=== PATIENT | female | born 1995 | race Caucasian/White ===

== ENCOUNTER 2023-07-14 08:42 | Outpatient (AMB) | payer BC, SELFPAY ==
--- NOTE | 2023-07-14 08:49 | A.OFFPC_ITS ---
Vital Signs 07/14/23 08:54 Height 5 ft 4.29 in Weight 165 lb 4 oz BMI 28.1 BP 112/78 Blood Pressure Location Lt brachial Position Sitting Respiration 12 Pulse 99 Pulse Source Pulse Oximeter Temp 98.2 F Temp Source Oral Pulse Oximetry (%) 98 Oxygen Delivery Method Room Air Intake Visit Reasons: est care Intake Note: New patient visit Allergies Penicillins Allergy (Severe, Verified 07/14/23 08:51) Rash prednisone Allergy (Severe, Verified 07/14/23 08:51) throat closing Sulfa (Sulfonamide Antibiotics) Allergy (Severe, Verified 07/14/23 08:51) Rash zpack Allergy (Severe, Uncoded 07/14/23 08:51) Rash Medication List - Last Reconciled 07/14/23 by Juju Barriga MD dextroamphetamine-amphetamine 30 mg 1 tab PO BID erenumab-aooe (Aimovig Autoinjector) mg subcut L norgest/e.estradiol-e.estrad 0.15 mg-30 mcg (84)/10 mcg (7) (Simpesse) 1 tab PO DAILY PNV,calcium 08-caav-kmact acid 27 mg iron- 1 mg (M-Inocencia Plus) 1 tab PO DAILY ubrogepant (Ubrelvy) mg PO Tobacco use date assessed: 07/14/23 Dental Screening Dental Screen Date: 07/14/23 Did you have a dental visit in the last 12 months?: No Did you have a dental problem in the last 6 months where you did not have access to dental care?: No Was dental information given to patient?: Patient has dentist HPI HPI Comments History of Present Illness Details This is a 28 year old female with a past medical history of endometriosis, migraines presenting to reestablish care. Endometriosis:On adderral, combined OCP, vistamin Migraines: On aimovig, ubrelvy [facility] Medical History (Updated 07/14/23 @ 11:03 by Juju Barriga MD) Acne Deviated septum Surgical History (Updated 07/14/23 @ 10:23 by Brittney Paez CMA) H/O section H/O laparoscopy H/O arthroscopic knee surgery Family History (Updated 07/14/23 @ 10:24 by Brittney Paez CMA) Mother HTN (hypertension) Father HTN (hypertension) Maternal Grandmother Breast cancer Social History Housing: House Patient Tobacco Use Status: Never used Tobacco e-Cigarette/Vaping Use: Never Used Second Hand Smoke Exposure: No service: No Current occupational status: employed 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 1. Little interest or pleasure in doing things: not at all 2. Feeling down, depressed, or hopeless: not at all 3. Trouble falling or staying asleep, or sleeping too much: nearly every day 4. Feeling tired or having little energy: several days 5. Poor appetite or overeating: not at all 6. Feeling bad about yourself - or that you are a failure or have let yourself or your family down: not at all 7. Trouble concentrating on things, such as reading the newspaper or watching television: not at all 8. Moving or speaking so slowly that other people could have noticed. Or the opposite - being so fidgety or restless that you have been moving around a lot more than usual: not at all 9. Thoughts that you would be better off or of hurting yourself in some way: not at all Total score: 4 Depression Screening Interpretation: Positive Depression Screening Follow-up: Existing condition Depression Screening Done: Yes Source: Developed by Drs. Jean Marie Forbes, Yesica Woodward, Donn Meléndez and colleagues, with an educational adelina from [employer]. Thrive Questionnaire Date Thrive assessed: 07/14/23 I am a: Patient What is your living situation today?: I have a steady place to live Within the past 12 months, did the food you bought not last and you didn't have the money to get more?: Never true Within the past 12 months, did you worry whether your food would run out before you got money to buy more?: Never true Do you have trouble paying for medicines?: No Do you have trouble getting transportation to medical appointments?: No Do you have trouble paying your heating and electricity bill?: No Do you have trouble taking care of your child, family member or friend?: No Do you have trouble with day-to-day activities such as bathing, preparing meals, shopping, managing finances, etc.?: No Are you currently unemployed and looking for a job?: No Are you interested in more education?: No Please select the resources that you would like help with: None Currently or been in a relationship where the following occur: no concerns reported THRIVE Score: 0 AUDIT C Alcohol Use Questionnaire (AUDIT-C) 1. How often do you have a drink containing alcohol?: Never 3. How often do you have six or more drinks on one occasion?: Never Total Score: 0 PALOMO-7 AMB Questionnaire PALOMO-7 Date PALOMO - 7 assessed: 07/14/23 Feeling nervous, anxious, or on edge: 0 = Not at all Not being able to stop or control worryin = Not at all Worrying too much about different things: 0 = Not at all Trouble relaxin = Not at all Being so restless that it is hard to sit still: 0 = Not at all Becoming easily annoyed or irritable: 0 = Not at all Feeling afraid as if something awful might happen: 0 = Not at all Total PALOMO-7 score (0-4 normal; 5-9 mild; 10-14 moderate; 15-21 severe): 0 Source: Developed by Drs. Jean Marie Forbes, Yesica Woodward, Donn Meléndez and colleagues, with an educational adelina from [employer]. PALOMO-7 Assessment Billing PALOMO-7 Assessment Tool: PALOMO-7 Assessment 44148 Physical exam (Primary Care) Vital Signs: Last Vital Signs Temp 98.2 F 07/14/23 08:54 Pulse 99 07/14/23 08:54 Resp 12 07/14/23 08:54 BP 112/78 07/14/23 08:54 Pulse Ox 98 07/14/23 08:54 Oxygen Delivery Method Room Air 07/14/23 08:54 BMI result Body Mass Index 28.1 Tobacco/Smoking Status: Tobacco use Status Tobacco use date assessed 07/14/23 07/14/23 08:58 Patient Tobacco Use Status Never used Tobacco 07/14/23 10:20 e-Cigarette/Vaping Use Never Used 07/14/23 09:52 PHQ-9: PHQ-9 Score PHQ-9: Total score 4 07/14/23 09:55 Depression Screening Interpretation: Positive Depression Screening Follow-up: Existing condition Thrive Assessment: Date of Thrive Assessment Date Thrive assessed 07/14/23 07/14/23 09:55 Currently or been in a relationship where the following occur: no concerns reported Assessment and Plan Assessment & Plan (1) Migraines: Comment: well controlled on current medications. Continue neurology follow up Code(s): G43.909 - Migraine, unspecified, not intractable, without status migrainosus Qualifiers: Migraine type: migraine (< 15 days per month) without aura Intractability: not intractable Status migrainosus presence: without status migrainosus Qualified Code(s): G43.009 - Migraine without aura, not intractable, without status migrainosus (2) Screening, deficiency anemia, iron: Code(s): Z13.0 - Encounter for screening for diseases of the blood and blood-forming organs and certain disorders involving the immune mechanism (3) Screening for hyperlipidemia: Code(s): Z13.220 - Encounter for screening for lipoid disorders (4) Screening for metabolic disorder: Code(s): Z13.228 - Encounter for screening for other metabolic disorders (5) Endometriosis: Code(s): N80.9 - Endometriosis, unspecified Orders: Orders Complete Blood Count Auto Diff Today G43.909 - Migraine, unspecified, not intractable, without status migrainosus, Z13.0 - Encounter for screening for diseases of the blood and blood-forming organs and certain disorders involving the immune mechanism, Z13.220 - Encounter for screening for lipoid disorders, Z13.228 - Encounter for screening for other metabolic disorders Comprehensive Met. Panel Today G43.909 - Migraine, unspecified, not intractable, without status migrainosus, Z13.0 - Encounter for screening for diseases of the blood and blood-forming organs and certain disorders involving the immune mechanism, Z13.220 - Encounter for screening for lipoid disorders, Z1 3.228 - Encounter for screening for other metabolic disorders Lipid Panel Today G43.909 - Migraine, unspecified, not intractable, without status migrainosus, Z13.0 - Encounter for screening for diseases of the blood and blood-forming organs and certain disorders involving the immune mechanism, Z13.220 - Encounter for screening for lipoid disorders, Z13.228 - Encounter for screening for other metabolic disorders Coding Level of Care Code Est Pt Level 4 (86370) Complex EM visit Add On G2211 Diagnoses Migraine without aura and without status migrainosus, not intractable G43.009 Migraine type: migraine (< 15 days per month) without aura Intractability: not intractable Status migrainosus presence: without status migrainosus Screening, deficiency anemia, iron Z13.0 Screening for hyperlipidemia Z13.220 Screening for metabolic disorder Z13.228 Endometriosis N80.9 Additional Codes PALOMO-7 Assessment Billing - PALOMO-7 Assessment Tool: PALOMO-7 Assessment 70910 ([id number])
[2023-07-14 08:54] VITALS: BP 112/78; PULSE 99; RESP 12; TEMP 36.8; O2SAT 98; BMI 28.1
== END 2023-07-14 10:03 | disposition home or self-care (01) ==
PROVIDERS: PCP Internal Medicine; Visit Provider Internal Medicine
DX: G43.009 Migraine without aura, not intractable, without status migrainosus (principal); Z13.0 Encounter for screening for diseases of the blood and blood-forming organs and certain disorders involving the immune mechanism; Z13.220 Encounter for screening for lipoid disorders; Z13.228 Encounter for screening for other metabolic disorders; N80.9 Endometriosis, unspecified
CPT/HCPCS: 99214; G2211

== ENCOUNTER 2023-08-24 09:13 | Outpatient (REF) | payer BC, SELFPAY ==
--- NOTE | ~2023-08-24 | XR_ITS ---
EXAMINATION: XR SHOULDER, RIGHT CLINICAL INFORMATION: Pain. COMPARISON: None available. TECHNIQUE: AP neutral rotation, Grashey and axillary views of the right shoulder are submitted. FINDINGS: The bones and soft tissues are normal. No fracture. Glenohumeral and acromioclavicular alignment is anatomic with normal joint space. No abnormal soft tissue calcifications. XR/XR shoulder RT min 2V IMPRESSION: Normal right shoulder.
== END 2023-08-24 09:14 | disposition home or self-care (01) ==
LOC: HO.HOSX 09:13
PROVIDERS: Visit Provider Physician Assistant
DX: M25.511 Pain in right shoulder (principal)
CPT/HCPCS: 73030

== ENCOUNTER 2023-08-24 13:18 | Outpatient (AMB) | payer BC, SELFPAY ==
[2023-08-24 13:37] VITALS: BMI 28.3
--- NOTE | 2023-08-24 13:37 | MHC.OFFVIS ---
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 DOI 2 weeks ago, felt a rip Intake Note: Ela is a 28 year old right hand dominant female who presents today for a evaluation of her right shoulder pain, DOI about a month. 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 She states her pain is getting a little worse since she has to do certain things. Patient finds mild relief with taking NSIADs/ Tylenol. 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 DOI 2 weeks ago, felt a rip: Details: 28-year-old right hand dominant female who presents in the office today, as a new patient, for an evaluation of right shoulder pain. The patient reported to her PCP via message on 08/14/2023?that she was lifting an unspecified object when she felt a pop and tear in the right shoulder. ? ? While in the office today, the patient reports the injury occurred about a month ago, in 07/2023. 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 She claims later that same say she picked up her son a second time and felt a ?ripping? sensation near the right clavicle. She reports a slight increase in pain since the injury, especially when she ?has to do certain things?. The patient claims to have mild relief with the use of NSAIDs and Tylenol. ? [facility] Medical History (Updated 08/24/23 @ 14:00 by Reshma Reyes PA-C) Acne Deviated septum Surgical History (Updated 07/14/23 @ 10:23 by Brittney Paez CMA) H/O section H/O laparoscopy H/O arthroscopic knee surgery Family History (Updated 07/14/23 @ 10:24 by Brittney Paez CMA) Mother HTN (hypertension) Father HTN (hypertension) Maternal Grandmother Breast cancer Social History (Updated 08/24/23 @ 13:44 by Francy Trotter) Housing: House Patient Tobacco Use Status: Never used Tobacco e-Cigarette/Vaping Use: Never Used Second Hand Smoke Exposure: No service: No Current occupational status: employed 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 Current occupational exposures/hazards: No Cognitive needs: No Hearing needs: No Vision needs: No Review of Systems Const All systems reviewed & are unremarkable except as noted in HPI and below Physical Exam Vital Signs: BMI result Body Mass Index 28.3 Const General: cooperative and no acute distress Orientation/consciousness: patient oriented x3 Resp Effort & Inspection: normal respiratory effort and able to speak in complete sentences Cardio Peripheral pulses: Peripheral pulses 2+ throughout Skin General skin exam: no rashes or lesions noted Neuro General: patient oriented x3 Extrem Other: Right shoulder: Forward flexion and abduction to 90 degrees. External rotation to end range with pain. Tenderness to palpation over the bicep tendon attachment. Pain with cross-body reach. Unable to perform empty can or drop arm due to pain and ROM restrictions. Able to perform Hook test at the pectoral muscle with no signs of ruptures. NVI. Assessment & Plan Assessment & Plan (1) Biceps tendonitis on right: Code(s): M75.21 - Bicipital tendinitis, right shoulder Category: Medical Plan Ms. Velasquez is a 28-year-old right hand dominant female who presents in the office today, as a new patient, for an evaluation of right shoulder pain. The patient reported to her PCP via message on 08/14/2023?that she was lifting an unspecified object when she felt a pop and tear in the right shoulder. ? ? While in the office today, the patient reports the injury occurred about a month ago, in 07/2023. 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 She claims later that same say she picked up her son a second time and felt a ?ripping? sensation near the right clavicle. She reports a slight increase in pain since the injury, especially when she ?has to do certain things?. The patient claims to have mild relief with the use of NSAIDs and Tylenol.? ? The patient will be referred to physical therapy. After completion of physical therapy should the patient?s symptoms persist, we will discuss further evaluation with an MRI. A prescription for diclofenac 75 mg PO BID was sent to the pharmacy today. Follow-up will be in six weeks, or sooner if needed. ? ? X-rays of the right shoulder which were obtained while in the office today and were reviewed by me, Reshma Reyes PA-C, revealed no acute fracture or dislocation. ? Orders: Orders XR shoulder RT min 2V Today M25.519 - Pain in unspecified shoulder PT Evaluation and Treatment Today M75.21 - Bicipital tendinitis, right shoulder Medications: New diclofenac sodium 75 mg PO BID 30 days PRN 60 tabs 0RF pain Patient Instructions: Scribed by Madyson Marley medical transcription supervisor, for Reshma Reyes PA-C on 08/24/2023 at 1:20 pm, EST.? Coding Level of Care Code New Pt Level 4 (99985) Diagnoses Biceps tendonitis on right M75.21
== END 2023-08-24 14:42 | disposition home or self-care (01) ==
PROVIDERS: PCP Internal Medicine; Visit Provider Physician Assistant
DX: M75.21 Bicipital tendinitis, right shoulder (principal)
CPT/HCPCS: 99203

== ENCOUNTER 2023-09-25 11:00 | Outpatient (RCR) | payer BC, SELFPAY ==
--- NOTE | 2023-09-25 13:07 | MHC.PT.OD ---
[facility] [place] Office [place] Office [place] Office [address] Karen Bhatt [address] [phone] F: [phone] F: [phone] F: [phone] F: [phone] Physical Therapy Daily Note Diagnosis: M75.21: bicipital tendinitis, right shoulder per Reshma Reyes PA-C 08/24/23 Date of Surgery: NA Date of Evaluation: 09/10/23 Date of Treatment: 09/25/23 Treatments to Date: 3 Cancellations to Date: No Shows to Date: Authorized Visits: Insurance End Date: Precautions/ Contraindications: Subjective: Ongoing pain. Very sore. Pt to see ortho on 10/06/23. Pain Score and Location: 7 R anterior shoulder/long head of the biceps, distal clavicle, pectoralis ms Objective Flowsheet: Tests & Measures L shoulder AROM flexion 80 sx, AAROM flexion to 85, Pain and guarding with PROM attempt for ER/IR see eval, IR/ER limited by pain, IR to midline L4, ER to ear. Pt has painful with resisted ER/IR. Concern for subscap injury/pectoralis/bicep long head. Pt ttp anterior shoulder, pectoralis, subscap area, TTP bicep. Pain with active add/IR. Exercises Table slide AAROM flexion/supine reviewed Pt. seated on chair and sliding R UE on plinth. Use of LE to assist w/ moving R UE. Reviewed but was painful. Trial of AAROM shoulder flexion in supine, limited tolerance. -Scapular retractions against 1/2 foam roller x 3 sec hold x 2 set 10R. Trial of sub-max shoulder isometrics with 3 sec hold flex/ext/er/ir x 2 set 5R. Pt issued handouts for support and self care. Pt reports was very sore after attempt of these for home. Pt expressing some relief with taping, minor skin irritation with area that was worn after getting wet. Skin appears intact today with no redness/skin irritation noted. Issued [employer] handouts for patient education last session. Applied three I strip for GH stability taping with third strip providing support along R UT. Pt. education on importance of not pushing shoulder beyond limits, but still using her R UE. Discussed how icing can help ease pain, especially when feeling sore, encouraged to ice daily 10-15 minutes prn up to a few times per day. Modalities Pt defer has been icing Assessment: 09/25/23: Pt reports ongoing intolerance for AAROM/ROM of her R shoulder. No relief reported with diclofenac; she states she stopped taking due to this due to no change. Pt has attended 4 session of PT with limited gains. Poor tolerance for AAROM/PROM, periscap, and isometric strengthening. Some short term relief reported with tape trial of GH support. Limited relief with ice. Pt is R hand dominant. Pt is being referred back [place] [facility] [place] due to limited gains. Pt to see orthopedics on 10/06/23. [employer] text message was sent to MARYBETH Reyes re: current status and recommendation for MRI due to plateaued status. Message sent at 11:17 today with read message receipt. 09/18/23: Pt expressing inability to reach, lift, perform IR/ADD without pain in R shoulder. Pt was educated re: AAROM vs AROM to reduce sx, reviewed body mechanics. Trialed ROCKTAPE for support with positive reduction in sx reported/expressed. Reiterated review and support of tape removal. Ela is a 28 y/o RHD female referred to PT from Reshma Reyes PA-C on 08/24/23 for bicipital tendinitis in the R shoulder. Her pain occasionally radiates down her arm in tricep distribution with reported pain with ROM or lifting. Physical impairments include TTP to R pec major insertion, long head of the biceps, limited and painful shoulder ROM on the R, decreased strength and pain with R shoulder MMT. Functional limitations include: dressing, bathing, doing hair, lifting heavy items/child, placing 10 month old (27lbs) child down into crib. Pt. appears to be a good candidate for PT based on her age and diagnosis, awareness should be noted that she does not participate in any physical activity and may need more follow up and education w/ pt. regarding HEP. Pt. encouraged to ice shoulder to help relieve sx's. Pt will benefit from body mechanics/education training to reduce sx. HEP handout given with scapular retractions and table slides. Pt will benefit from PT twice weekly at a frequency of 2x/week x 6 weeks to address impairments, implement HEP, and address functional goals. PT Plan: Pt placed on hold from PT at this time due to limited tolerance/pain with task. Pt to see orthopedics on 10/06/23. Short Term Goals: -Pt. will increase R shoulder active flexion to 170 degrees (IR 75 degrees) -Pt. will increase R active shoulder ER to 85 degrees (IR: 40 degrees) -Pt. will report a 25% decrease in shoulder sx's Datastage Consultant Goals: -Pt. will increase R shoulder flexion strength to 5/5 (IR: 4/5) -Pt. will increase R shoulder ER strength to 5/5 (IR: 4/5) -Pt. will have a 25% decrease in SPADI score -Pt. will be independent with HEP - Pt will demonstrate good lifting techniques Electronically signed by: Camelia Camara, PT, DPT
== END 2024-01-11 09:41 | disposition home or self-care (01) ==
LOC: HO.PTWFD 11:00
PROVIDERS: PCP Internal Medicine; Visit Provider Physician Assistant
DX: M75.21 Bicipital tendinitis, right shoulder (principal)
CPT/HCPCS: 97110; 97140; 97162; 97530; 97535

== ENCOUNTER 2023-10-06 15:19 | Outpatient (AMB) | payer BC, SELFPAY ==
--- NOTE | 2023-10-06 15:29 | MHC.OFFVIS ---
Intake Visit Reasons: ov-R shoulder pain. DOI 2 weeks ago, felt a rip Intake Note: Ela is a 28 year old right hand dominant female who presents today for a evaluation of her right shoulder pain, DOI about a month. Patient reports she is still having pain and she feels like it is getting worse. She mentions that PT stopped the session due to not helping the patient. Patient reports that Diclofenac didn't give her relief. Patient finds mild relief with icing. Allergies Penicillins Allergy (Severe, Verified 08/24/23 13:43) Rash prednisone Allergy (Severe, Verified 08/24/23 13:43) throat closing Sulfa (Sulfonamide Antibiotics) Allergy (Severe, Verified 08/24/23 13:43) Rash zpack Allergy (Severe, Uncoded 07/14/23 08:51) Rash HPI HPI ov-R shoulder pain. DOI 2 weeks ago, felt a rip: Details: 28-year-old right hand dominant female who presents in the office today for a follow-up of right shoulder pain. I last saw the patient in the office on 08/24/23 when she was referred to physical therapy and prescribed diclofenac 75 mg PO BID. ? ? While in the office today, the patient reports attending physical therapy, but states sessions stopped due to them not helping the patient. She also claims to have no relief with the diclofenac. She states she finds mild relief when applying ice. [facility] Medical History (Updated 10/06/23 @ 15:48 by Reshma Reyes PA-C) Acne Deviated septum Surgical History (Updated 07/14/23 @ 10:23 by Brittney Paez CMA) H/O section H/O laparoscopy H/O arthroscopic knee surgery Family History (Updated 07/14/23 @ 10:24 by Brittney Paez CMA) Mother HTN (hypertension) Father HTN (hypertension) Maternal Grandmother Breast cancer Social History (Updated 08/24/23 @ 13:44 by Francy Trotter) Housing: House Patient Tobacco Use Status: Never used Tobacco e-Cigarette/Vaping Use: Never Used Second Hand Smoke Exposure: No service: No Current occupational status: employed 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 Abduction to 45 degrees. External rotation to end range. Able to reach T-12. Positive cross-body reach. Negative drop arm. Unable to assess empty can due to pain and ROM restrictions. Negative belly lift off. No deformity at the pectoral attachment site. NVI. Assessment & Plan Assessment & Plan (1) Pectoralis muscle strain: Code(s): S29.011A - Strain of muscle and tendon of front wall of thorax, initial encounter Category: Medical Plan Ms. Velasquez is a 28-year-old right hand dominant female who presents in the office today for a follow-up of right shoulder pain. I last saw the patient in the office on 08/24/23 when she was referred to physical therapy and prescribed diclofenac 75 mg PO BID. ? ? While in the office today, the patient reports attending physical therapy, but states sessions stopped due to them not helping the patient. She also claims to have no relief with the diclofenac. She states she finds mild relief when applying ice.? ? The patient will be referred for an MRI to further evaluate the integrity of the right shoulder and surrounding structures. Follow-up will be after the MRI is obtained, or sooner if needed. ? ? X-rays of the right shoulder, obtained on 08/24/23, revealed: No acute fracture or dislocation. ? Orders: Orders MR shoulder RT wo con 10/06/23 S29.011A - Strain of muscle and tendon of front wall of thorax, initial encounter Patient Instructions: Scribed by Madyson Marley back office medical assistant, for Reshma Reyes PA-C on 10/06/2023 at 3:20 pm, EST.? Coding Level of Care Code Est Pt Level 3 (53073) Diagnoses Pectoralis muscle strain S29.011A
== END 2023-10-06 15:55 | disposition home or self-care (01) ==
PROVIDERS: PCP Internal Medicine; Visit Provider Physician Assistant
DX: S29.011A Strain of muscle and tendon of front wall of thorax, initial encounter (principal)
CPT/HCPCS: 99213

== ENCOUNTER → 2023-10-06 15:19 | Outpatient (BNVA) | payer BC, SELFPAY | PROVIDERS: PCP Internal Medicine; Visit Provider Physician Assistant ==

== ENCOUNTER 2023-11-13 10:22 | Outpatient (AMB) | payer BC, SELFPAY ==
--- NOTE | 2023-11-13 10:48 | A.OFFVIS_ITS ---
Intake Visit Reasons: OV - right shoulder MRI review Intake Note: Ela is a 28 year old right hand dominant female who presents today for a MRI review of her right shoulder. Patient reports she is feeling worse. She mentions that her shoulder feels weak as well. Allergies Penicillins Allergy (Severe, Verified 11/13/23 10:53) Rash prednisone Allergy (Severe, Verified 11/13/23 10:53) throat closing Sulfa (Sulfonamide Antibiotics) Allergy (Severe, Verified 11/13/23 10:53) Rash zpack Allergy (Severe, Uncoded 07/14/23 08:51) Rash HPI HPI OV - right shoulder MRI review: Details: 28-year-old right hand dominant female who presents in the office today for a follow-up of right shoulder pain. I last saw the patient in the office on 10/06/23 when an MRI was ordered to further evaluate the integrity of the right shoulder. ? ? While in the office today, the patient reports she is feeling worse and states the right shoulder feels weak. ? COUNT INCLUDES [facility] Medical History (Updated 10/06/23 @ 15:48 by Reshma Reyes PA-C) Acne Deviated septum Surgical History (Updated 07/14/23 @ 10:23 by Brittney Paez CMA) H/O section H/O laparoscopy H/O arthroscopic knee surgery Family History (Updated 07/14/23 @ 10:24 by Brittney Paez CMA) Mother HTN (hypertension) Father HTN (hypertension) Maternal Grandmother Breast cancer Social History (Updated 08/24/23 @ 13:44 by Francy Trotter) Housing: House Patient Tobacco Use Status: Never used Tobacco e-Cigarette/Vaping Use: Never Used Second Hand Smoke Exposure: No service: No Current occupational status: employed 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 Abduction to 45 degrees. External rotation to end range. Able to reach T-12. Positive cross-body reach. Negative drop arm. Unable to assess empty can due to pain and ROM restrictions. Negative belly lift off. No deformity at the pectoral attachment site. NVI. Assessment & Plan Assessment & Plan (1) Pectoralis muscle strain: Code(s): S29.011A - Strain of muscle and tendon of front wall of thorax, initial encounter Category: Medical Plan Ms. Velasquez is a 28-year-old right hand dominant female who presents in the office today for a follow-up of right shoulder pain. I last saw the patient in the office on 10/06/23 when an MRI was ordered to further evaluate the integrity of the right shoulder. ? ? While in the office today, the patient reports she is feeling worse and states the right shoulder feels weak.? ? The case was reviewed by Dr. Vuong who was available to speak with me but unable to see the patient, and a collaborative treatment plan was made. Unfortunately, there is no additional treatment from an orthopedic standpoint to offer this patient now, as she has tried and failed physical therapy. There are no significant orthopedic findings on the MRI to warrant surgical intervention. Therefore, I recommend a referral to Pain Managment for further evaluation and treatment of the right shoulder. A referral was sent from the office today. Follow-up with Orthopedics will be PRN, or sooner if needed. ? ? MRI of the right shoulder, obtained at [facility] on 10/27/23, revealed: Mild rotator cuff tendinopathy. ? Orders: Referrals Pain Management Referral M25.511 - Pain in right shoulder Patient Instructions: Scribed by Madyson Marley medical affairs leader, for eRshma Reyes PA-C on 11/13/2023 at 10:29 am, EST.? Coding Level of Care Code Est Pt Level 4 (21493) Diagnoses Pectoralis muscle strain S29.011A
== END 2023-11-13 11:02 | disposition home or self-care (01) ==
PROVIDERS: PCP Internal Medicine; Referring Provider Internal Medicine; Visit Provider Physician Assistant
DX: S29.011A Strain of muscle and tendon of front wall of thorax, initial encounter (principal)
CPT/HCPCS: 99214

== ENCOUNTER → 2023-11-13 10:22 | Outpatient (BNVA) | payer BC, SELFPAY | PROVIDERS: PCP Internal Medicine; Visit Provider Physician Assistant ==

== ENCOUNTER 2024-01-19 15:34 | Outpatient (AMB) | payer BC, SELFPAY ==
--- NOTE | 2024-01-19 15:47 | MHC.PC.OV ---
Vital Signs 01/19/24 15:51 Height 5 ft 4 in Weight 155 lb 6 oz BMI 26.7 BP 112/82 Blood Pressure Location Rt brachial Position Sitting Pulse 82 Pulse Source Pulse Oximeter Pulse Oximetry (%) 99 Oxygen Delivery Method Room Air Intake Visit Reasons: 6M Follow Up Intake Note: Six month follow up Paid Search Specialist Required: No Allergies Penicillins Allergy (Severe, Verified 01/19/24 15:48) Rash prednisone Allergy (Severe, Verified 01/19/24 15:48) throat closing Sulfa (Sulfonamide Antibiotics) Allergy (Severe, Verified 01/19/24 15:48) Rash zpack Allergy (Severe, Uncoded 01/19/24 15:48) Rash Tobacco use date assessed: 01/19/24 Dental Screening Dental Screen Date: 07/14/23 HPI HPI Comments History of Present Illness Details This is a 28 year old female with a past medical history of endometriosis, migraines presenting [facility]. Endometriosis:On adderral, combined OCP, vitamin. Follows with Dr Acevedo Migraines: On emgality, ubrelvy. Follows at [facility] neurology ROS CONSTITUTIONAL: Denies weight loss, fever and chills. HEENT: Denies changes in vision and hearing. RESPIRATORY: Denies SOB and cough. CV: Denies palpitations and CP GI: Denies abdominal pain, nausea, vomiting and diarrhea. : Denies dysuria and urinary frequency. MSK: Denies new myalgia and joint pain. SKIN: Denies rash and pruritus. NEUROLOGICAL: Denies headache PSYCHIATRIC: Denies recent changes in mood. PHYSICAL EXAM: GENERAL: Alert and oriented x 3. NAD EYES: EOMI. Anicteric. HENT: Moist mucous membranes. No scleral icterus. No cervical lymphadenopathy. LUNGS: Clear to auscultation bilaterally. CARDIOVASCULAR: Regular rate and rhythm. No murmur. No JVD. ABDOMEN: Soft, non-tender +bs EXTREMITIES: No edema. Non-tender. SKIN: No rashes or lesions. Warm. NEUROLOGIC: No focal neurological deficits. CN II-XII grossly intact PSYCHIATRIC: Cooperative. Appropriate mood and affect [facility] Medical History (Updated 01/19/24 @ 16:06 by Juju Barriga MD) Acne Deviated septum Surgical History (Updated 07/14/23 @ 10:23 by Brittney Paez CMA) H/O section H/O laparoscopy H/O arthroscopic knee surgery Family History (Updated 07/14/23 @ 10:24 by Brittney Paez CMA) Mother HTN (hypertension) Father HTN (hypertension) Maternal Grandmother Breast cancer Social History (Updated 01/19/24 @ 15:51 by Brittney Paez CMA) Housing: House Alcohol intake: never Patient Tobacco Use Status: Never used Tobacco e-Cigarette/Vaping Use: Never Used Second Hand Smoke Exposure: No service: No Current occupational status: employed 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 1. Little interest or pleasure in doing things: not at all 2. Feeling down, depressed, or hopeless: not at all 3. Trouble falling or staying asleep, or sleeping too much: not at all 4. Feeling tired or having little energy: not at all 5. Poor appetite or overeating: not at all 6. Feeling bad about yourself - or that you are a failure or have let yourself or your family down: not at all 7. Trouble concentrating on things, such as reading the newspaper or watching television: not at all 8. Moving or speaking so slowly that other people could have noticed. Or the opposite - being so fidgety or restless that you have been moving around a lot more than usual: not at all 9. Thoughts that you would be better off or of hurting yourself in some way: not at all Total score: 0 Source: Developed by Drs. Jean Marie Forbes, Yesica Woodward, Donn Meléndez and colleagues, with an educational adelina from [employer]. Thrive Questionnaire Date Thrive assessed: 01/19/24 I am a: Patient What is your living situation today?: I have a steady place to live Within the past 12 months, did the food you bought not last and you didn't have the money to get more?: Never true Within the past 12 months, did you worry whether your food would run out before you got money to buy more?: Never true Do you have trouble paying for medicines?: No Do you have trouble getting transportation to medical appointments?: No Do you have trouble paying your heating and electricity bill?: No Do you have trouble taking care of your child, family member or friend?: No Do you have trouble with day-to-day activities such as bathing, preparing meals, shopping, managing finances, etc.?: No Are you currently unemployed and looking for a job?: No Are you interested in more education?: No Please select the resources that you would like help with: None Currently or been in a relationship where the following occur: No concerns reported THRIVE Score: 0 AUDIT C Alcohol Use Questionnaire (AUDIT-C) 1. How often do you have a drink containing alcohol?: Never 3. How often do you have six or more drinks on one occasion?: Never Total Score: 0 PALOMO-7 AMB Questionnaire PALOMO-7 Date PALOMO - 7 assessed: 07/14/23 Feeling nervous, anxious, or on edge: 0 = Not at all Not being able to stop or control worryin = Not at all Worrying too much about different things: 0 = Not at all Trouble relaxin = Not at all Being so restless that it is hard to sit still: 0 = Not at all Becoming easily annoyed or irritable: 0 = Not at all Feeling afraid as if something awful might happen: 0 = Not at all Total PALOMO-7 score (0-4 normal; 5-9 mild; 10-14 moderate; 15-21 severe): 0 Source: Developed by Drs. Jean Marie Forbes, Yesica Woodward, Donn Meléndez and colleagues, with an educational adelina from [employer]. Physical exam (Primary Care) Tobacco/Smoking Status: Tobacco use Status Tobacco use date assessed 07/14/23 07/14/23 08:58 Patient Tobacco Use Status Never used Tobacco 01/19/24 15:51 e-Cigarette/Vaping Use Never Used 01/19/24 15:51 Thrive Assessment: Date of Thrive Assessment Date Thrive assessed 01/19/24 01/19/24 09:27 Currently or been in a relationship where the following occur: No concerns reported Coding Level of Care Code Est Pt Level 3 (22584) Diagnoses Migraine without aura and without status migrainosus, not intractable G43.009 Migraine type: migraine (< 15 days per month) without aura Status migrainosus presence: without status migrainosus Intractability: not intractable Endometriosis N80.9 Assessment & Plan Assessment & Plan (1) Migraines: Code(s): G43.909 - Migraine, unspecified, not intractable, without status migrainosus Category: Medical Qualifiers: Migraine type: migraine (< 15 days per month) without aura Status migrainosus presence: without status migrainosus Intractability: not intractable Qualified Code(s): G43.009 - Migraine without aura, not intractable, without status migrainosus Plan: Well controlled on current medication (2) Endometriosis: Code(s): N80.9 - Endometriosis, unspecified Category: Medical Plan: controlled on current medication Orders: Orders Complete Blood Count Auto Diff Today G43.009 - Migraine without aura, not intractable, without status migrainosus, Z13.0 - Encounter for screening for diseases of the blood and blood-forming organs and certain disorders involving the immune mechanism, Z13.220 - Encounter for screening for lipoid disorders, Z13.228 - Encounter for screening for other metabolic disorders Lipid Panel Today G43.009 - Migraine without aura, not intractable, without status migrainosus, Z13.0 - Encounter for screening for diseases of the blood and blood-forming organs and certain disorders involving the immune mechanism, Z13.220 - Encounter for screening for lipoid disorders, Z13.228 - Encounter for screening for other metabolic disorders TSH reflex Free T4 Today G43.009 - Migraine without aura, not intractable, without status migrainosus, Z13.0 - Encounter for screening for diseases of the blood and blood-forming organs and certain disorders involving the immune mechanism, Z13.220 - Encounter for screening for lipoid disorders, Z13.228 - Encounter for screening for other metabolic disorders UA w Microscopic Today G43.009 - Migraine without aura, not intractable, without status migrainosus, Z13.0 - Encounter for screening for diseases of the blood and blood-forming organs and certain disorders involving the immune mechanism, Z13.220 - Encounter for screening for lipoid disorders, Z13.228 - Encounter for screening for other metabolic disorders Comprehensive Met. Panel Today G43.009 - Migraine without aura, not intractable, without status migrainosus, Z13.0 - Encounter for screening for diseases of the blood and blood-forming organs and certain disorders involving the immune mechanism, Z13.220 - Encounter for screening for lipoid disorders, Z13.228 - Encounter for screening for other metabolic disorders
[2024-01-19 15:51] VITALS: BP 112/82; PULSE 82; O2SAT 99; BMI 26.7
== END 2024-01-19 16:06 | disposition home or self-care (01) ==
PROVIDERS: PCP Internal Medicine; Visit Provider Internal Medicine
DX: G43.009 Migraine without aura, not intractable, without status migrainosus (principal); N80.9 Endometriosis, unspecified

== ENCOUNTER → 2024-01-19 15:34 | Outpatient (BNVA) | payer BC, SELFPAY | PROVIDERS: PCP Internal Medicine; Visit Provider Internal Medicine ==

== ENCOUNTER 2024-02-26 09:54 | Outpatient (AMB) | payer BC, SELFPAY ==
--- NOTE | 2024-02-26 09:55 | AM.OFFWIN_ITS ---
Intake Vital Signs 02/26/24 09:58 Height 5 ft 4 in Weight 152 lb BMI 26.1 BP 110/66 Blood Pressure Location Lt brachial Position Sitting Respiration 12 Pulse 93 Pulse Source Pulse Oximeter Pulse Oximetry (%) 98 Oxygen Delivery Method Room Air Intake Visit Reasons: est care/ sore throat Intake Note: Patient complaining of sore throat, raw and irritated throat started yesterday Patient Tobacco Use Status: Never used Tobacco Allergies Penicillins Allergy (Severe, Verified 02/26/24 09:58) Rash prednisone Allergy (Severe, Verified 02/26/24 09:58) throat closing Sulfa (Sulfonamide Antibiotics) Allergy (Severe, Verified 02/26/24 09:58) Rash zpack Allergy (Severe, Uncoded 01/19/24 15:48) Rash Do you need a note to return to daycare/school/sports/work: No HPI HPI Comments History of Present Illness Details This is a 28 year old female with a past medical history of endometriosis, migraines presenting for follow up Has had sore throat since yesterday. Her child has strep. She denies fevers, cough, shortness of breath Endometriosis:On adderral, combined OCP, vitamin. Follows with Dr Acevedo Migraines: On emgality, ubrelvy. Follows at [facility] neurology ROS CONSTITUTIONAL: Denies weight loss, fever and chills. HEENT: Denies changes in vision and hearing. RESPIRATORY: Denies SOB and cough. CV: Denies palpitations and CP GI: Denies abdominal pain, nausea, vomiting and diarrhea. : Denies dysuria and urinary frequency. MSK: Denies new myalgia and joint pain. SKIN: Denies rash and pruritus. NEUROLOGICAL: Denies headache PSYCHIATRIC: Denies recent changes in mood. PHYSICAL EXAM: GENERAL: Alert and oriented x 3. NAD EYES: EOMI. Anicteric. HENT: Moist mucous membranes. No scleral icterus. No cervical lymphadenopathy. LUNGS: Clear to auscultation bilaterally. CARDIOVASCULAR: Regular rate and rhythm. No murmur. No JVD. ABDOMEN: Soft, non-tender +bs EXTREMITIES: No edema. Non-tender. SKIN: No rashes or lesions. Warm. NEUROLOGIC: No focal neurological deficits. CN II-XII grossly intact PSYCHIATRIC: Cooperative. 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 Current occupational exposures/hazards: No Cognitive needs: No Hearing needs: No Vision needs: No Physical Exam Vital Signs: Last Vital Signs Pulse 93 02/26/24 09:58 Resp 12 02/26/24 09:58 BP 110/66 02/26/24 09:58 Pulse Ox 98 02/26/24 09:58 Oxygen Delivery Method Room Air 02/26/24 09:58 BMI result Body Mass Index 26.1 Assessment & Plan Assessment & Plan (1) Sore throat: Code(s): J02.9 - Acute pharyngitis, unspecified Plan: Sore throat will treat for strep Doxycycline, fluconazole sent Medications: New doxycycline hyclate 100 mg PO BID 14 tabs 0RF 7 days fluconazole 150 mg PO Q3D 2 tabs 0RF 2 doses Coding Level of Care Code Est Pt Level 4 (03962) Diagnoses Sore throat J02.9
[2024-02-26 09:58] VITALS: BP 110/66; PULSE 93; RESP 12; O2SAT 98; BMI 26.1
== END 2024-02-26 15:28 | disposition home or self-care (01) ==
LOC: HO.HMCFM 09:54
PROVIDERS: PCP Internal Medicine; Visit Provider Internal Medicine
DX: J02.9 Acute pharyngitis, unspecified (principal)

== ENCOUNTER 2024-05-10 09:28 | Outpatient (AMB) | payer BC, SELFPAY ==
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
[2024-05-10 09:43] VITALS: BP 146/84; PULSE 113; RESP 12; O2SAT 99; BMI 26.6
[2024-05-10 09:49] VITALS: BP 134/82
--- OUTSIDE RECORDS SUMMARY | 2024-05-10 10:41 | XMS_ITS | Data Portability ---
Author Organization [facility], [facility], SURGICAL Address [address] [place] [id number] Care Team Providers Care Water Technician Name Role Phone KRISHCHRISTOPH CONNER Primary Care Provider [phone] [facility] OTHER Assessment Encounter Date Assessment Date Assessment LastModified by Organization Details LastModified Time 09/07/2020 09/07/2020 Ela is a 25-year-old woman with possibly a partial tear of the flexor tendon of the right small finger or possibly a more chronic trigger finger of the small finger. I recommend an MRI to evaluate this more fully. Not available 09/07/2020 11:36:07 Plan of Treatment Reminders Order Date Submit Date Provider Last Modified By Organization Details Last Modified Time Details Appointments None record ed. Lab None record ed. Referral None record ed. Procedures None record ed. Surgeries None record ed. Imaging None record ed. Medication Orders None record ed. Patient TargetsNo targets recorded. Patient Instructions Encounter Date Encounter Id Patient Instructions Last Modified By Organization Details Last Modified Time 09/07/2020 [id number] We will see her back after the MRI to discuss appropriate further intervention. Not available 09/07/2020 11:36:13 Reason for Referral None Reported. Results Created Date Observation Date Name Description Value Unit Range Abnormal Flag Note LastModifiedBy Organization Detail LastModifiedTime 09/01/19 21 08/28/2020 XR, hand, 3 or more view No observ ation record ed. Not Available 2022 10:01:39 10/13/19 21 10/11/2020 MRI, hand, w/o contr ast No observ ation record ed. Not Available 2022 10:01:39 Result Notes None recorded. Problems Name Problem SNOMED Code Status Onset Date Resolution Date Notes Provider Name and Address Organization Details Recorded Time Pain in right hand 61828572529128 9 Active 2019 pt states she grabbed something and felt a pop= was seen at [facility]- stated it was a tear in royce and didnt do anything for it [facility] Problem Notes None recorded. Procedures Surgical History None recorded. Imaging Results Imaging Date Name Status LastModified by [facility] Details LastModified Time 08/28/2020 XR, hand, 3 or more view completed Information not available 11/20/2022 10:01:39 10/11/2020 MRI, hand, w/o contrast completed Information not available 11/20/2022 10:01:39 Procedure Notes None recorded. Medical Equipment None Reported. Allergies Allergen ID Allergen Name Allergen Category Reaction Reaction Severity Criticality Documentation Date Start Date Code Code System Note Provider Name and Address Organization Details Recorded Time 188 Product containin g penicilli n (product) medicatio n Not available Not available Not available 09/06/2020 20047 8001 SNOMED Iftikhar Velazquez [facility] 11:09:47 189 Bactrim medicatio n Not available Not available Not available 09/06/2020 14744 9 RxNorm Iftikhar Velazquez [facility] 11:09:58 190 codeine medicatio n Not available Not available Not available 09/06/2020 2670 RxNorm Iftikhar Velazquez [facility] 11:10:12 Medications Name Sig Start Date Stop Date Status Note LastModified by Organization Details LastModified Time Adderall 30 mg tablet Take 1 tablet twice a day by oral route. active Not Available Not Available No t Available methylphenid ate 10 mg tablet TAKE 1 TABLET BY MOUTH TWICE A DAY active Not Available Not Available No t Available spironolacto ne 100 mg tablet TAKE 1 TABLET BY MOUTH EVERY DAY active Not Available Not Available No t Available hydrocortiso ne acetate 25 mg rectal suppository UNWRAP AND INSERT 1 SUPPOSITORY RECTALLY 2 TIMES A DAY FOR 7 DAYS active Not Available Not Available N ot Available hydrocortiso ne 2.5 % topical cream with perineal applicator APPLY RECTALLY TWICE A DAY active Not Available Not Available Not Available ferrous sulfate 325 mg (65 mg iron) tablet TAKE 1 TABLET BY MOUTH TWICE A DAY active Not Available Not Available No t Available diclofenac sodium 75 mg tablet,delay ed release TAKE 1 TABLET BY MOUTH TWICE A DAY active Not Available Not Available No t Available albuterol sulfate HFA 90 mcg/actuatio n aerosol inhaler TAKE 2 PUFFS EVERY 6 HOURS active Not Available Not Available No t Available metocloprami de 10 mg tablet TAKE 1 TABLET BY MOUTH EVERY 8 HOURS NEEDED FOR NAUSEA AND VOMITING active Not Available Not Available No t Available clindamycin 1 % lotion APPLY TWICE DAILY FOR FOLLICULITI S OF ARMS active Not Available Not Available No t Available Prenatabs FA 29 mg-1 mg tablet TAKE 1 TABLET BY MOUTH EVERY DAY active Not Available Not Available No t Available dapsone 5 % topical gel APPLY SPARINGLY TWICE A DAY FOR ACNE/FOLLIC ULITIS OF FACE AND ARMS active Not Available Not Available No t Available Cordran Tape Large Roll 4 mcg/cm2 APPLY TO AFFECTED AREA ON ARMS/BACK FOR 12 HRS DAILY X 2 WEEKS THEN 1 WK OFF & CYCLE NEEDED active Not Available Not Available No t Available erenumab-aoo e 140 mg/mL subcutaneous auto-injecto r Inject every month by subcutaneou s route. active Not Available Not Available No t Available Ubrelvy 100 mg tablet Take by oral route. active Not Available Not Available Not Available Ubrelvy 50 mg tablet active Not Available Not Available No t Available Nurtec ODT 75 mg disintegrati ng tablet TAKE 1 TABLET BY MOUTH EVERY 24 HOURS NEEDED FOR MIGRAINE active Not Available Not Available No t Available Vitals Date Recorded Body height Body mass index (BMI) Body weight Heart rate Oxygen saturation Oxygen saturation in Arterial blood by Pulse oximetry Respiratory rate Body temperature Systolic blood pressure Diastolic blood pressure Provider Name and Address Organization Details Last Updated DateTime 1 162.56 cm 18.4 kg/m2 78165.3 8 g 107 /min 100 % 100 % 16 /min 97.9 [degF] 105 mm[Hg] 65 mm[Hg] [facility] 11:15:11 Social History Question Answer Notes LastModified by Organizat ion Details LastModified Time Tobacco Smoking Status Never Smoker Iftikhar Velazquez [facility] 09/06/2020 11:17:38 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 Mental Status None recorded. Family History Nothing Reported. Medical History No medical history recorded. Gynecological HistoryNo gynecological history recorded. Obstetrics History GPAL:G 0 P 0 0 0 0 Past Encounters Encounter ID Performer Location Encounter Start Date Encounter Closed Date Diagnosis/Indication Diagnosis SNOMED-CT Code Diagnosis ICD10 Code Diagnosis Note [id number] Luis Marquez MD Main Office [address] [place] [address],[address] [place] [address] 09/07/2020 11:11:50 09/07/2020 14:01:09 Acquired trigger finger of right little finger [id number] 51731 M65.351 Health Concerns Section Related Observation LastModified by Organization Detai ls LastModified Time None Recorded Concern Status LastModified by Organization Details LastModified Time None Recorded Advance Directives Directive None Recorded Payers Encounter Date Sequence Insurance Name Policy Number Policy Pérez Covered Member ID Pérez Member ID Guarantor Name 09/07/2020 1 [facility]: MARYCHUY MOSESNTON TRACEY [id number] Ela Velasquez [id number] Ela Velasquez Notes Date Note Type Note Provider Name and Address Organization Details Recorded Time 09/07/2020 text/html CC: Right small finger pain. 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 She reports that she thinks that she may have injured it pulling sheets off of a bed. She is been having some pain in the region of the flexor tendon of the small finger for about a year now. She is been doing physical therapy with some transient relief. She was told by a doctor in a clinic at the time of the injury that she might have had a rupture of the flexor tendon of the small finger. She reports pain in the region of the A1 royce. She reports some stiffness of the finger without nalini locking. She denies any large swelling or bruising after the injury. She has not had any injections in the finger. She denies any numbness or tingling in the finger. She reports a little bit of volar wrist pain along the ulnar aspect of the wrist as well. She has not yet had any further imaging studies of the wrist but has had x-rays obtained which were essentially unremarkable. Luis Marquez MD [address] [place] [address],SUITE [facility], [place], [address], [facility], [facility] 09/18/2020 13:06:46 OBGyn Episode No OBEpisode recorded.
== END 2024-05-10 10:07 | disposition home or self-care (01) ==
LOC: HO.HMCFM 09:29
PROVIDERS: PCP Internal Medicine; Visit Provider Internal Medicine
DX: F41.1 Generalized anxiety disorder (principal); F43.0 Acute stress reaction; F41.0 Panic disorder [episodic paroxysmal anxiety]

== ENCOUNTER → 2024-05-10 09:28 | Outpatient (BNVA) | payer BC, SELFPAY | PROVIDERS: PCP Internal Medicine; Visit Provider Internal Medicine | DX: F41.1 Generalized anxiety disorder (principal); F43.0 Acute stress reaction; F41.0 Panic disorder [episodic paroxysmal anxiety] | CPT/HCPCS: 96127 ==

== ENCOUNTER 2024-06-07 11:17 | Outpatient (AMB) | payer BC, SELFPAY ==
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
== END 2024-06-07 11:37 | disposition home or self-care (01) ==
LOC: HO.HMCFM 11:17
PROVIDERS: PCP Internal Medicine; Visit Provider Internal Medicine
DX: F41.1 Generalized anxiety disorder (principal); F43.0 Acute stress reaction; F41.0 Panic disorder [episodic paroxysmal anxiety]

== ENCOUNTER 2024-07-19 15:38 | Outpatient (AMB) | payer BC, SELFPAY ==
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
== END 2024-07-19 17:05 ==
LOC: HO.HMCFM 15:38
PROVIDERS: PCP Internal Medicine; Visit Provider Internal Medicine
DX: F41.1 Generalized anxiety disorder (principal); F41.0 Panic disorder [episodic paroxysmal anxiety]; F43.0 Acute stress reaction

== ENCOUNTER 2024-10-24 14:21 | Outpatient (REF) | payer BC, SELFPAY ==
[2024-10-24 17:28] LABS: MANUAL DIFF FLAG NO
[2024-10-24 17:31] LABS: Hematocrit 42.8 % (37.0-47.0); Hemoglobin 14.7 g/dl (12.0-16.0); Imm Gran Abs Auto 0.02 X10*3/uL (0.00-0.03); Imm Gran Pct Auto 0.2 % (0.0-0.4); Lymphocytes Absolute Auto 2.2 X10*3/uL (1.2-4.9); Mean Corpuscular HGB Conc 34.3 g/dl (31.0-35.0); Mean Corpuscular Hemoglobin 31.3 pg (27.0-33.0); Mean Corpuscular Volume 91.1 fL (80.0-98.0); NRBC Abs Auto 0.000 X10*3/uL (0.0-0.012); NRBC Pct Auto 0.0 /100WBC (0.0-0.2); Platelet Count 367 X10*3/uL (160-400); Red Blood Count 4.70 X10*6/uL (4.20-5.50); White Blood Count 8.1 X10*3/uL (4.8-10.8)
[2024-10-24 17:46] LABS: Hemoglobin A1C 109.2663 umol/L
[2024-10-24 17:51] LABS: Alanine Aminotransferase 21 U/L (0-31); Albumin Level 4.7 g/dL (3.5-5.0); Alkaline Phosphatase 70 U/L (39-117); Anion Gap 11 (12-20); Aspartate Amino Transferase 36 U/L (5-31); Blood Urea Nitrogen 7 mg/dL (9-16); Calcium 9.5 mg/dL (8.4-10.2); Carbon Dioxide 26 mmol/L (22-29); Chloride 105 mmol/L (96-108); Cholesterol 180 mg/dL (<200); Estimated Glomerular Filt Rate > 60; HDL Cholesterol 58 mg/dL (>40); Potassium 3.8 mmol/L (3.3-5.1); Sodium 138 mmol/L (135-145); Total Protein 7.2 g/dL (6.5-8.0); Triglycerides 58 mg/dL (<150)
== END 2024-10-24 14:22 | disposition home or self-care (01) ==
LOC: HO.WFDLDS 14:21
PROVIDERS: PCP Internal Medicine; Visit Provider Internal Medicine
DX: Z00.00 Encounter for general adult medical examination without abnormal findings (principal); F41.1 Generalized anxiety disorder; F43.0 Acute stress reaction; F41.0 Panic disorder [episodic paroxysmal anxiety]; R53.83 Other fatigue; R63.5 Abnormal weight gain
CPT/HCPCS: 36415; 80053; 80061; 83036; 84443; 85025; 96127

== ENCOUNTER 2024-10-24 14:21 | Outpatient (AMB) | payer BC, SELFPAY ==
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
[2024-10-24 14:32] VITALS: BP 114/78; PULSE 80; RESP 12; O2SAT 99; BMI 29.2
--- OUTSIDE RECORDS SUMMARY | 2024-10-24 15:57 | XMS_ITS ---
Author Name Juju Rodriguez Address Unknown Organization [facility] Care Team Providers Care Light Equipment Operator Name Role Phone Unavailable Primary Care Physician Unavailab le History Of Present Illness No data Allergies, Adverse Reactions, Alerts Substance RxNorm Reaction(s) Severity Status Start Da te Penicillin V Potassium unspecified activ e Penicillins Hives, Weal severe active 2019 Bactrim Weal, Hives severe active 03/15/19 Sulfa (Sulfonamide Antibiotics) unspecif ied active prednisone unspecified active Medications Medication Generic Name RxNorm Strength Strength Unit Route Dose Dose Form Frequency Date Started Date Ended Status Indication Sig clindamycin phosphate clindamy sherwin phosphat e 302852 1 % Topica l lotio n 01/13/20 19 suspend ed APPL Y BID FOR FOLL ICUL ITIS OF ARMS clindamycin -benzoyl peroxide clindamy sherwin-omid oyl peroxide 3778736 1.2 %(1 % base) -5 % Topica l gel 06/09/19 24 active Spot jessie tmen t for blem ishe s 1-2 time s [place] pr[place] Cordran Tape Large Roll flurandr enolide 924143 4 mcg/cm2 Topica l tape suspend ed Cordran Tape Large Roll flurandr enolide 365241 4 mcg/cm2 Topica l tape 08/23/19 20 suspend ed Appl y to affe cted area on arms /kaiser k for 12 hour s [place] x 2 week s, thin one week off and cycl e PRN. Cordran Tape Large Roll flurandr enolide 555510 4 mcg/cm2 Topica l tape 08/07/19 22 suspend ed Appl y to aj vidu al spot s on fore arms for 12 hour s [place] prn Cordran Tape Large Roll 4 mcg/cm2 Topica l tape suspend ed Cordran Tape Large Roll flurandr enolide 283846 4 mcg/cm2 Topica l tape 06/09/19 24 active Appl y to aj vidu al spot s on fore arms for 12 hour s [place] pr[place] dapsone dapsone 875411 5 % Topica l gel 01/13/20 19 suspend ed APPL Y SPAR INGL Y BID FOR ACNE /FOL LICU LITI S OF FACE AND ARMS dapsone dapsone 620004 5 % Topica l gel 08/07/19 22 suspend ed Appl y [place] for acne prn dapsone dapsone 435021 5 % Topica l gel 10/16/19 24 active Appl y [place] for acne prn gentamicin gentamic in 19760504 0.1 % Topica l cream 03/15/19 20 suspend ed Appl y spar ingl y BID to affe cted area s for foll icul itis albuterol sulfate 90 mcg/actua tion Inhala tion HFA aeros ol inhal er suspend ed dextroamphe tamine-amph etamine 30 mg Oral table t suspend ed dextroamphe tamine-amph etamine 30 mg Oral table t suspend ed fluconazole 150 mg Oral tabl e t suspend ed metoclopram beckie HCl 10 mg Oral table t suspend ed Vitamin Plus Low Iron 27 mg iron- 1 mg Oral table t active Simpesse L norgest/ e.estrad iol-e.es trad 0.15 mg-30 mcg (84)/10 mcg (7) Oral Table t, Dose Pack, 3 Month s active spironolact one spironol actone 19810403 100 mg Oral table t 12/16/19 19 suspend ed Take one tab by mout h ever y day spironolact one spironol actone 19810403 100 mg Oral table t 08/07/19 22 suspend ed One each morn ing for acne spironolact one spironol actone 19810404 50 mg Oral table t 02/05/20 22 suspend ed Take 1 pill [place] spironolact one 50 mg Oral table t suspend ed spironolact one spironol actone 19810404 50 mg Oral table t 04/11/19 23 suspend ed Take 1 pill QAM Ubrelvy 100 mg Oral table t suspend ed Aimovig Autoinjecto r 140 mg/mL Subcut aneous auto- injec tor suspend ed Aczone NULL 09/23/19 18 suspend ed Adapalene NULL 03/30/19 13 suspend ed Amitriptyli ne HCl NULL 10/31/19 16 active Amphetamine -Dextroamph etamine NULL 10/31/19 16 active Amphetamine -Dextroamph etamine NULL 10/31/19 16 suspend ed Antipyrine- Benzocaine NULL 10/30 16 active Azithromyci n NULL 10/31/19 16 active Benzonatate NULL 11/12/19 17 suspend ed Benzoyl Peroxide NULL 0 17 suspend ed Betamethaso ne Dipropionat e Aug NULL 11/12/19 17 suspend ed Butalbital- APAP-Caffei ne NULL 10/31/19 16 active Cephalexin NULL 10/31/19 16 suspend ed Citalopram Hydrobromid e NULL 10/31/19 16 active Clarithromy sherwin NULL 10/31/19 16 active Clindamycin HCl NULL 09/14/19 19 suspend ed Clindamycin Phosphate NULL 11 suspend ed Clobetasol Propionate NULL 10/30 16 active Clotrimazol e-Betametha sone NULL 10/31/19 16 active CORDRAN 4 MCG/SQ CM TAPE LARGE NULL 05/05 18 suspend ed Cyclobenzap rine HCl NULL 0 16 active Diclofenac Sodium NULL 11/12/19 17 active Differin NULL 12/06/19 11 active Doxycycline Hyclate NULL 11/16/19 16 suspend ed Doxycycline Hyclate NULL 10/31/19 16 active Doxycycline Monohydrate NULL 10/31 04/21 17 suspend ed Doxycycline Monohydrate NULL 10/02 03/21 16 active Doxycycline Monohydrate NULL 03/03 09/18 12 active EMLA NULL 07/20/19 13 active Estradiol NULL 10/31/19 16 active Estradiol NULL 10/31/19 16 suspend ed Fluconazole NULL 10/31/19 16 active FLUCONAZOLE 150 MG TABLET NULL 10/31/19 16 suspend ed FLUoxetine HCl NULL 10/31/19 16 active FLUoxetine HCl NULL 10/31/19 16 active Fluticasone Propionate NULL 10/30 16 active Gabapentin NULL 10/31/19 16 active Hibiclens NULL 08/08/19 12 active Hydrocortis one Acetate NULL 0803/21 16 suspend ed HydrOXYzine HCl NULL 10/31/19 16 active HydrOXYzine HCl NULL 10/31/19 16 active Keflex NULL 09/26/19 11 active LevoFLOXaci n NULL 10/31/19 16 active Lidocaine-P rilocaine NULL 16 active LORazepam NULL 10/31/19 16 active MedroxyPROG ESTERone Acetate NULL 10/31/19 16 active MedroxyPROG ESTERone Acetate NULL 10/31/19 16 active Meloxicam NULL 10/31/19 16 suspend ed Meloxicam NULL 10/31/19 16 active Microgestin FE 1.5/30 NULL 16 active Minocycline HCl NULL 05/06/19 18 suspend ed Mupirocin NULL 10/31/19 16 active Mycolog NULL 11/16/19 16 suspend ed Nabumetone NULL 11/12/19 17 active Naproxen NULL 10/31/19 16 active Naproxen Sodium NULL 10/31/19 16 active Nystatin-Tr iamcinolone NULL 10/31 04/21 17 active Ofloxacin NULL 10/31/19 16 active Ondansetron NULL 10/31/19 16 active Ondansetron HCl NULL 10/31/19 16 active Ondansetron HCl NULL 10/31/19 16 suspend ed Oxycodone-A cetaminophe n NULL 10/31/19 16 active Phenazopyri dine HCl NULL 0 16 suspend ed PredniSONE NULL 10/31/19 16 active ProAir HFA NULL 10/31/19 16 active Prochlorper azine Maleate NULL 11/12/19 17 active Qnasl NULL 10/31/19 16 active Silver Sulfadiazin e NULL 10/31/19 16 active SPIRONOLACT ONE 100 MG TABLET NULL 01/01/20 18 suspend ed Sulfamethox azole-TMP DS NULL 10/31/19 16 active Sulfamethox azole-Trime thoprim NULL 10/31/19 16 suspend ed SUMAtriptan Succinate NULL 16 active Terconazole NULL 11/12/19 17 active Tranexamic Acid NULL 10/31/19 16 active Tretinoin NULL 07/27/20 11 active Vitamin D (Ergocalcif elliott) NULL 10/31/19 16 active Zovia 1/35E (28) NULL 10/31/19 16 active Problems Problem Code Type Status Date of Diagnosis Da te of Resolution Patient encounter status (finding) 449914601(SN OMED) Diagnosis active 10/21/2024 Patient encounter status (finding) 171469989(SN OMED) Diagnosis active 09/23/2024 Patient encounter status (finding) 899981302(SN OMED) Diagnosis active 08/26/2024 Patient encounter status (finding) 467347653(SN OMED) Diagnosis active 07/29/2024 Boil of upper limb (disorder) 244963026(SN OMED) Diagnosis active 06/09/2023 Boil of upper limb (disorder) 488755613(SN OMED) Diagnosis active 06/09/2023 Acne vulgaris (disorder) 76945837(SNO MED) Diagnosis active 06/09/2023 Patient encounter status (finding) 339333094(SN OMED) Diagnosis active 01/17/2023 Patient encounter status (finding) 801168234(SN OMED) Diagnosis active 12/18/2022 Boil of upper limb (disorder) 446126182(SN OMED) Diagnosis active 12/02/2022 Boil of upper limb (disorder) 093230750(SN OMED) Diagnosis active 12/02/2022 Acne vulgaris (disorder) 63828282(SNO MED) Diagnosis active 12/02/2022 Patient encounter status (finding) 060236050(SN OMED) Diagnosis active 10/24/2022 Patient encounter status (finding) 744239705(SN OMED) Diagnosis active 08/07/2022 Patient encounter status (finding) 190887970(SN OMED) Diagnosis active 07/09/2022 Patient encounter status (finding) 486535650(SN OMED) Diagnosis active 06/11/2022 Patient encounter status (finding) 746910509(SN OMED) Diagnosis active 05/08/2022 Patient encounter status (finding) 023513366(SN OMED) Diagnosis active 03/05/2022 Patient encounter status (finding) 211422836(SN OMED) Diagnosis active 02/06/2022 Boil of upper limb (disorder) 997251157(SN OMED) Diagnosis active 02/04/2022 Boil of upper limb (disorder) 231050643(SN OMED) Diagnosis active 02/04/2022 Acne vulgaris (disorder) 55504845(SNO MED) Diagnosis active 02/04/2022 Patient encounter status (finding) 513233534(SN OMED) Diagnosis active 01/08/2022 Patient encounter status (finding) 118669934(SN OMED) Diagnosis active 12/20/2021 Patient encounter status (finding) 779974065(SN OMED) Diagnosis active 12/11/2021 Patient encounter status (finding) 535309809(SN OMED) Diagnosis active 11/06/2021 Patient encounter status (finding) 089592490(SN OMED) Diagnosis active 10/16/2021 Patient encounter status (finding) 985906541(SN OMED) Diagnosis active 09/11/2021 Patient encounter status (finding) 049681017(SN OMED) Diagnosis active 08/07/2021 Acne (disorder) 10049317(SNO MED) Diagnosis active 08/06/2021 Boil of upper limb (disorder) 484503461(SN OMED) Diagnosis active 08/06/2021 Boil of upper limb (disorder) 619285364(SN OMED) Diagnosis active 08/06/2021 Patient encounter status (finding) 300116288(SN OMED) Diagnosis active 07/10/2021 Patient encounter status (finding) 916285142(SN OMED) Diagnosis active 06/12/2021 Patient encounter status (finding) 922018560(SN OMED) Diagnosis active 05/15/2021 Patient encounter status (finding) 056946671(SN OMED) Diagnosis active 04/23/2021 Encounter for procedure for purposes other than remedying health state, unspecified Z41.9(ICD-10 ) Diagnosis active 04/13/2020 Furuncle of left upper limb L02.424(ICD- 10) Diagnosis active 03/15/2019 Furuncle of right upper limb L02.423(ICD- 10) Diagnosis active 03/15/2019 Acne vulgaris L70.0(ICD-10 ) Diagnosis active 03/15/2019 Disorder of skin (disorder) 21121316(SNO MED) Diagnosis active 12/15/2017 Disorder of skin (disorder) 15054749(SNO MED) Diagnosis active 09/22/2017 Disorder of skin (disorder) 63683073(SNO MED) Diagnosis active 07/07/2017 Disorder of skin (disorder) 21555755(SNO MED) Diagnosis active 05/05/2017 Basal cell carcinoma of lower extremity (disorder) 367295791(SN OMED) Diagnosis active 04/14/2017 Disorder of skin (disorder) 44817654(SNO MED) Diagnosis active 04/14/2017 Disorder of skin (disorder) 23344362(SNO MED) Diagnosis active 02/03/2017 Disorder of skin (disorder) 05299559(SNO MED) Diagnosis active 11/11/2016 Disorder of skin (disorder) 73974702(SNO MED) Diagnosis active 08/28/2016 Disorder of skin (disorder) 52919794(SNO MED) Diagnosis active 11/16/2015 Disorder of skin pigmentation (disorder) 60396371(SNO MED) Diagnosis active 02/21/2015 Disorder of skin pigmentation (disorder) 52799857(SNO MED) Diagnosis active 10/20/2014 Disorder of skin pigmentation (disorder) 02593606(SNO MED) Diagnosis active 2014 Late effects of injury, poisoning, toxic effects and other external causes (disorder) 731347443(SN OMED) Diagnosis active 09/21/2013 Acne (disorder) 88223762(SNO MED) Problem active Asteatosis cutis (disorder) 55621558(SNO MED) Problem active History of skin disorder (situation) 544766057(SN OMED) Problem active Results No data Encounters Service provided at [facility], [address] [place] [id number]. Office phone number is [phone]. Office fax number is [phone]. Encounter Diagnosis Location Date / Time Type Cosmetic (Z41.9)Cosmetic (Z41.9) [facility] 10/22/19 15:30:00 [facility] Reason For Referral No data Procedures Procedure Date Documentation of past medical history (p rocedure) Documentation of past medical history (p rocedure) Documentation of past medical history (p rocedure) Documentation of past medical history (p rocedure) Documentation of past medical history (p rocedure) Documentation of past medical history (p rocedure) Documentation of past medical history (p rocedure) Documentation of past medical history (p rocedure) Documentation of past medical history (p rocedure) Documentation of past medical history (p rocedure) Documentation of past medical history (p rocedure) Documentation of past medical history (p rocedure) Documentation of past medical history (p rocedure) Documentation of past medical history (p rocedure) Documentation of past medical history (p rocedure) Documentation of past medical history (p rocedure) Documentation of past medical history (p rocedure) Documentation of past medical history (p rocedure) Documentation of past medical history (p rocedure) Documentation of past medical history (p rocedure) Documentation of past medical history (p rocedure) Documentation of past medical history (p rocedure) Documentation of past medical history (p rocedure) Documentation of past medical history (p rocedure) Documentation of past medical history (p rocedure) Documentation of past medical history (p rocedure) Documentation of past medical history (p rocedure) Documentation of past medical history (p rocedure) Documentation of past medical history (p rocedure) Documentation of past medical history (p rocedure) Documentation of past medica l history (procedure) Open Ninfa osteotomy x2 screw removal tibia x2 tonsils adenoids deviated septum Review Of Systems No Data Assessment 1.CosmeticFacial: face; Extraction - closed comedones and open comedones; Mask Type - cream based; Extraction Method - comedone extractor; Exfoliation Type - enzyme; Treatment Type - Facial;Massage - shoulder massage, facial massage, and hand massage; Additional Findings - acne, dryness, and redness.2.CosmeticDermaplane: face; Treatment Area Prep - acetone; Blade - 10R blade scalpel; John (Use numbers only, no special characters or $) - 75; Treatment Areas - face and neck. Plan of Care Code Detail Instructions 859198 dapsone 5 % topical gel Apply da connor for acne prn 758029 Cordran Tape Large Roll 4 mcg/cm 2 Apply to individual spots on forearms for 12 hours daily prn 7094697 clindamycin 1.2 % (1 % base)-benzoyl peroxide 5 % topical gel Spot treatment for blemishes 1-2 times daily prn 19810404 spironolactone 50 mg tablet Take 1 pill QAM 19810403 spironolactone 100 mg tablet One each morning for acne 787703 Cordran Tape Large Roll 4 mcg/cm 2 Apply to individual spots on forearms for 12 hours daily prn 19810404 spironolactone 50 mg tablet Take 1 pill daily 475835 dapsone 5 % topical gel Apply da connor for acne prn 880892 spironolactone 100 mg tablet One each morning for acne 295125 Cordran Tape Large Roll 4 mcg/cm 2 Apply to individual spots on forearms for 12 hours daily prn 148419 Cordran Tape Large Roll 4 mcg/cm 2 Apply to affected area on arms/back for 12 hours daily x 2 weeks, thin one week off and cycle PRN. 19810403 spironolactone 100 mg tablet Jimmy e one tab by mouth every day 945379 Cordran Tape Large Roll 4 mcg/cm 2 Apply to affected area on arms/back for 12 hours daily x 2 weeks, thin one week off and cycle PRN. 061759 Cordran Tape Large Roll 4 mcg/cm 2 Apply to affected area on arms/back for 12 hours daily x 2 weeks, thin one week off and cycle PRN. 579985 Cordran Tape Large Roll 4 mcg/cm 2 Apply to affected area for 12 hours daily, remove and reapply prn 19760504 gentamicin 0.1 % topical cream A pply sparingly BID to affected areas for folliculitis 19740310 clindamycin 1 % lotion APPLY BID FOR FOLLICULITIS OF ARMS 782851 dapsone 5 % topical gel APPLY SP ARINGLY BID FOR ACNE/FOLLICULITIS OF FACE AND ARMS 19810403 spironolactone 100 mg tablet Jimmy e one tab by mouth every day Instructions No Data Social History Code Activity Start Date End Date [id number] (SNOMED) Never smoker Sex female Sexual orientation Unspecified Gender identity Unspecified Vital Signs No data
--- OUTSIDE RECORDS SUMMARY | 2024-10-24 15:57 | XMS_ITS | Patient Health Record ---
Author Organization [facility] Address [address] [place] [id number] Care Team Providers Care Biztalk Architect Name Role Phone Zenon Bernard MD Primary Care Provider Unavail able Jitendra Betancourt Jr Unavailable [phone] Jony Jacobs Unavailable Unavailable Allergies Allergen (clinical drug ingredient) Drug/Non Drug Allergy documented on EMR Reaction Allergy Type Onset Date Status Penicillin Unknown Drug Allergy Active sulfamethoxazole / trimethoprim Bactrim Unknown Drug Allergy Active Reason For Referral No Information Medications Medication SIG (Take, Route, Frequency, Duration) Notes Start Date End Date Status Adderall 30 MG 1 tablet Orally Twic e a day Active Linzess 145 MCG 1 capsule Orally Onc e a day for 90 days 12/18/2017 Active Doxycycline Hyclate 50 MG 1 capsule Oral ly every 12 hrs Active Multi Vitamin/Minerals - Orally Active Social History Tobacco Use: Social History Observation Description Date Details (start date - stop date) Never Smoker NA - NA Tobacco Use/Smoking Question Answer Notes Patient is a nonsmoker Alcohol Screen Question Answer Notes Did you have a drink contain ing alcohol in the past year? Yes How often did you have a dri nk containing alcohol in the past year? Monthly or less (1 point) How many drinks did you have on a typical day when you were drinking in the past year? 1 or 2 drinks (0 point) How often did you have 6 or more drinks on one occasion in the past year? Never (0 point) Points 1 Interpretation Negative Problems Problem Type SNOMED Code ICD Code Onset Dates Problem Status W/U Status Risk Notes Problem 23339462 Constipation, unspecified constipation type (K59.00) Active confirmed Plan Of Treatment Pending Test Test Name Order Date CBC w/o DIFF 12/23/2017 TSH REFLEX FREE T4 12/23/2017 Insurance Providers Payer Name Payer Address Payer Phone Subscriber Number Group Number Insured Name Patient Relationship to Insured Coverage Start Date Coverage End Date [employer] [employer] [address] [place] [address] [id number] MONAE TORRES Self - patient is the insured Medical (General) History Medical History History ICD Code Denies MT,DM,CVA,Lung disease,renal dise ase Surgical History Surgery Date(Month/Year) open william osteotomy -both 2016,2017 right knee arthroscopy 2016 laparoscopy 2012,2013
--- OUTSIDE RECORDS SUMMARY | 2024-10-24 15:57 | XMS_ITS | Clinical Summary ---
Author Organization [facility] Address [address] [place] [phone] Phone Care Team Providers Care Esl Tutor Name Role Phone Juju Mcfadden MD Primary Care Provider [phone] Allergies Active Allergy Reactions Criticality Noted Date Comments Azithromycin Rash Low 02/08/2023 Codeine 03/06/2020 Erythromycin Base 03/06/2020 Fluorouracil-Adhesive Bandage 06/20/2022 Other reaction(s): rash Penicillin 06/20/2022 Other reaction(s): RASH Penicillins Rash Low 02/11/2019 Prednisone High 06/20/2022 Other reaction(s): anaphylactic, itchy throat Sulfamethoxazole-Trimethopri m Rash Low 02/11/2019 Other reaction(s): Hives Medications multivitamins capsule Take 1 capsule by mouth daily. Active Active Problems No known active problems Family History Medical History Relation Comments Hypertension Father 2 Hypertension Mother 2 Relation Status Comments Father 1 Alive Father 2 Mother 1 Alive Mother 2 Social History Tobacco Use Types Packs/Day Years Used Date Smoking Tobacco: Never Passive Smoke Exposure: Never Smokeless Tobacco: Never Alcohol Use Standard Drinks/Week Comments Yes 0 (1 standard drink = 0.6 oz pur e alcohol) infrequent Education Answer Date Recorded Are you interested in more education? Not on lesley e 06/27/2022 Are you concerned about learning? Not on file 06/27/2022 No 06/27/2022 No 06/27/2022 Digital Access Answer Date Recorded No 07/25/2022 No 07/25/2022 Reliable internet access at home? Not on file 07/25/2022 Device with a working camera? Not on file Comments Unknown Sex and Gender Information Value Date Recorded Sex Assigned at Female 03/08/2020 10:28 AM EST Legal Sex Female 10:24 PM EDT Gender Identity Female 03/08/2020 10:28 AM EST Sexual Orientation Straight 03/08/2020 10 :28 AM EST Last Filed Vital Signs Vital Sign Reading Time Taken Comments Blood Pressure 115/79 02/08/2023 1:01 PM EST Pulse 86 02/08/2023 1:01 PM EST Temperature 36.2 C (97.1 F) 02/08/2023 1:01 PM EST Respiratory Rate 16 02/08/2023 1:01 PM EST Oxygen Saturation 97% 02/08/2023 1:01 PM EST Inhaled Oxygen Concentration - - Weight 77.1 kg (170 lb) 02/08/2023 1:01 PM EST Height 162.6 cm (5' 4 ) 02/08/2023 1:01 PM EST Body Mass Index 29.18 02/08/2023 1:01 PM EST Plan of Treatment Health Maintenance Due Date Last Done Comments DEPRESSION SCREENING 2006 HEPATITIS C SCREENING 2012 HIV ONE-TIME SCREENING (18-6 5 YEARS) 2012 PAP SMEAR 2015 COVID-19 VACCINE (4 - 2023-2 5 season) 2023 02/20/2021, 06/25/2020, 05/28/2020 Adult Td,Tdap Booster 05/27/2027 05/26/2017 , 09/04/2015, 06/16/2005 MENINGOCOCCAL VACCINES (ACWY) Aged Out 11/05/2007 No longer eligible based on patient's age to complete this topic HEPATITIS A VACCINES Completed 04/29/2012, 08/07/2010 SMOKING STATUS SCREENING (On ce After 26 Yrs) Completed 06/20/2022 HIB VACCINES Aged Out No longer eligi ble based on patient's age to complete this topic MENINGOCOCCAL VACCINES (B) Aged Out N o longer eligible based on patient's age to complete this topic PNEUMOCOCCAL VACCINES (0-49 years) Aged Out No longer eligible b ased on patient's age to complete this topic Medical Devices Not on file [place] [address] [address] [place] [address] [place] [address] [facility] Care Teams Esl Tutor Relationship Specialty Start Date End Date Juju Mcfadden MD PCP - General Internal Medicine 06/20/22 Additional Source Comments The information contained in this document represents components of the legal health record. It is not the complete legal health record.[facility]
== END 2024-10-24 15:08 | disposition home or self-care (01) ==
LOC: HO.HMCFM 14:23
PROVIDERS: PCP Internal Medicine; Visit Provider Internal Medicine
DX: Z00.00 Encounter for general adult medical examination without abnormal findings (principal); F41.1 Generalized anxiety disorder; F43.0 Acute stress reaction; F41.0 Panic disorder [episodic paroxysmal anxiety]

== ENCOUNTER 2024-12-13 13:49 | Outpatient (AMB) | payer BC, SELFPAY ==
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
[2024-12-13 15:50] VITALS: BMI 30.3
--- OUTSIDE RECORDS SUMMARY | 2024-12-13 16:48 | XMS_ITS | Patient Health Record ---
Author Organization [facility] Address [address] [place] [id number] Care Team Providers Care Sales Engagement Manager Name Role Phone Zenon Bernard MD Primary Care Provider Unavail able Jitendra Betancourt Jr Unavailable [phone] Jony Jacobs Unavailable Unavailable Allergies Allergen (clinical [...] MCG 1 capsule Orally Onc e a day; Duration: 90 days 12/18/2017 Active Doxycycline Hyclate 50 [...] Problem Status W/U Status Risk Notes Problem Constipation (02894592) Constipation, unspecified constipation type (K59.00) Active confirmed Plan Of Treatment Pending Test Test Name Order Date CBC w/o DIFF 12/23/2017 TSH REFLEX FREE T4 12/23/2017 Insurance Providers Payer Name Payer Address Payer Phone Subscriber Number Group Number Insured Name Patient Relationship to Insured Coverage Start Date Coverage End Date [facility] [employer] [address] [place] [address] [id number] MONAE TORRES Self - patient is the insured Medical (General) History Medical History History ICD Code Denies SC,DM,CVA,Lung disease,renal dise ase Surgical History Surgery Date(Month/Year) open william osteotomy -both 2016,2017 right knee arthroscopy 2016 laparoscopy 2012,2013
--- OUTSIDE RECORDS SUMMARY | 2024-12-13 16:48 | XMS_ITS | Clinical Summary ---
Author Organization [facility] Address [address] [place] [id number] Phone Care Team Providers Care Cotton Dispatcher Name Role Phone Juju Mcfadden MD Primary Care Provider Allergies Active Allergy Reactions Criticality Noted Date [...] (18-6 5 YEARS) 2012 PAP SMEAR 2015 INFLUENZA VACCINE (#1) 2024 COVID-19 VACCINE (2024-2 6 season) 2024 02/20/2021, 06/25/2020, 05/28/2020 Adult Td,Tdap Booster 05/27/2027 [...] topic Medical Devices Not on file Insurance [place] [address] [place] [id number] [facility] Care Teams Cotton Dispatcher Relationship Specialty Start Date End Date Juju Mcfadden MD PCP - General Internal Medicine 06/20/22 Additional Source Comments The information contained in this document represents components of the legal health record. It is not the complete legal health record.[facility]
== END 2024-12-13 15:55 | disposition home or self-care (01) ==
LOC: HO.HMCFM 13:49
PROVIDERS: PCP Internal Medicine; Visit Provider Internal Medicine
DX: F41.1 Generalized anxiety disorder (principal); F43.0 Acute stress reaction; E66.811 Obesity, class 1; E78.5 Hyperlipidemia, unspecified